=== PATIENT | female | born 1990 | race Caucasian/White ===

== ENCOUNTER 2022-08-28 08:00 | Outpatient (CLI) | payer MEDICAID ==
[2022-08-28 17:44] LABS: BASOPHILS # (AUTO) 0.1 10^3/uL (0.0-0.1); BASOPHILS % (AUTO) 1.1 %; EOSINOPHILS # (AUTO) 0.2 10^3/uL (0.0-0.7); EOSINOPHILS % (AUTO) 3.2 %; HCT - HEMATOCRIT 33.9 % (37.0-47.0); HGB - HEMOGLOBIN 10.7 g/dL (12.0-16.0); LYMPHOCYTES # (AUTO) 2.8 10^3/uL (1.5-3.5); MEAN CORPUSCULAR HEMOGLOBIN 25.7 pg (27.0-31.0); MEAN CORPUSCULAR HGB CONC 31.6 g/dL (32.0-36.0); MEAN CORPUSCULAR VOLUME 81.5 fL (81.0-99.0); MEAN PLATELET VOLUME 10.6 fL (7.9-10.8); MONOCYTES # (AUTO) 0.5 10^3/uL (0.0-1.0); MONOCYTES % (AUTO) 6.3 %; NEUTROPHILS # (AUTO) 3.8 10^3/uL (1.5-6.6); NEUTROPHILS % (AUTO) 51.3 %; PLT - PLATELET COUNT 392 10^3/uL (130-450); RED BLOOD COUNT 4.16 10^6/uL (4.20-5.40); RED CELL DISTRIBUTION WIDTH 16.2 % (12.0-15.0); WHITE BLOOD COUNT 7.5 x10^3/uL (4.8-10.8)
[2022-08-28 18:22] LABS: CALCIUM 9.9 mg/dL (8.5-10.3); CREATININE 0.6 mg/dL (0.4-1.0); POTASSIUM 4.1 mmol/L (3.5-5.0)
== END 2022-08-28 23:59 | disposition home or self-care (01) ==
LOC: LAB.N 08:00
PROVIDERS: ATTEND Physician Assistant
DX: N93.9 Abnormal uterine and vaginal bleeding, unspecified (principal)
CPT/HCPCS: 36415; 80048; 84443; 85025

== ENCOUNTER 2022-10-23 06:56 | Emergency (ER) | payer MEDICAID ==
[2022-10-23 07:11] VITALS: BP 116/76
[2022-10-23] MEDS ORDERED: SODIUM CHLORIDE 0.9% 1,000 ML IV STA (07:21)
[2022-10-23] MEDS ORDERED: KETOROLAC 30 MG/ML VIAL IVP STA (07:21)
--- NOTE | 2022-10-23 07:24 | ED Physician Documentation ---
PD HPI ABD PAIN - Stated complaint Stated Complaint: LT SIDE PX - Chief complaint Chief Complaint: Abd Pain - History obtained from History obtained from: Patient - History of Present Illness Timing - onset: Enter time (0500) Timing - duration: Hours Timing - details: Abrupt onset, Still present Pain level max: 10 Pain level now: 6 Quality: Sharp, Pain Location: LLQ Radiation: Left flank Improved by: Other (nothing) Worsened by: Position Associated symptoms: Nausea, Vaginal bleeding. No: Vomiting, Vaginal dc Similar symptoms before: Has not had sx before Recently seen: Not recently seen - Additional information Additional information: 32-year-old female with no particular past medical history awoke this morning at 5 AM with acute left flank pain radiating into her groin and causing her some urinary urgency. She did have some vaginal spotting this morning. Pain was nonmodifiable and the patient had her drive her to the emergency department Review of Systems Constitutional: denies: Fever Ears: denies: Ear pain Nose: denies: Congestion Throat: denies: Sore throat Cardiac: denies: Chest pain / pressure Respiratory: denies: Cough GI: reports: Abdominal Pain, Nausea : reports: Hematuria. denies: Dysuria, Frequency Skin: denies: Rash Musculoskeletal: reports: Back pain. denies: Neck pain, Extremity pain Neurologic: denies: Generalized weakness, Focal weakness, Numbness PD PAST MEDICAL HISTORY - Present Medications Home Medications: Ambulatory Orders Medication Instructions Recorded Confirmed HYDROcod/ACETAM 5/325 [[place] 5/325] 1 - 2 tablet PO Q6H PRN #14 tablet 10/23/22 - Allergies Allergies/Adverse Reactions: Allergies Allergy/AdvReac Type Severity Reaction Status Date / Time No Known Drug Allergies Allergy Verified 10/23/22 07:06 PD ED PE NORMAL - Vitals Vital signs reviewed: Yes (normal ) - General General: Alert and oriented X 3, Well developed/nourished, Other (appears to be in pain ) - HEENT HEENT: Atraumatic, PERRL, EOMI - Neck Neck: Supple, no meningeal sign, No bony TTP - Cardiac Cardiac: RRR, No murmur - Respiratory Respiratory: No respiratory distress, Clear bilaterally - Abdomen Abdomen: Normal bowel sounds, Soft, Non tender, Non distended, No organomegaly - Back Back: No CVA TTP, No spinal TTP - Derm Derm: Normal color, Warm and dry, No rash - Extremities Extremities: No deformity, No edema - Neuro Neuro: Alert and oriented X 3, director 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 2-12 intact, No motor deficit, No sensory deficit, Normal speech Eye Opening: Spontaneous Motor: Obeys Commands Verbal: Oriented GCS Score: 15 - Psych Psych: Normal mood, Normal affect Results - Vitals Vitals: Vital Signs - 24 hr 10/23/22 07:04 Temperature 36.8 C Heart Rate 79 Respiratory 20 Rate Blood Pressure 116/76 O2 Saturation 100 Oxygen O2 Source Room air - Labs Labs: Laboratory Tests 10/23/22 10/23/22 10/23/22 07:37 07:40 07:40 WBC 6.4 RBC 4.13 L Hgb 9.9 L Hct 32.4 L MCV 78.5 L MCH 24.0 L MCHC 30.6 L RDW 14.6 Plt Count 368 MPV 9.8 Neut # (Auto) 4.4 Lymph # (Auto) 1.4 L [place] # (Auto) 0.4 Eos # (Auto) 0.2 Baso # (Auto) 0.1 Absolute Nucleated RBC 0.00 Nucleated RBC % 0.0 Sodium 136 Potassium 4.1 Chloride 101 Carbon Dioxide 25 Anion Gap 10.0 BUN 17 Creatinine 0.6 Estimated GFR (MDRD) 115 Glucose 89 Calcium 9.2 Total Bilirubin 0.8 AST 21 ALT 15 Alkaline Phosphatase 75 Total Protein 7.4 Albumin 4.2 Globulin 3.2 Albumin/Globulin Ratio 1.3 Lipase 40 Urine Color RED/BLOODY Urine Clarity CLOUDY Urine pH 6.5 Ur Specific [place] 1.020 Urine Protein 100 H Urine Glucose (UA) NEGATIVE Urine Ketones NEGATIVE Urine Occult Blood LARGE H Urine Nitrite NEGATIVE Urine Bilirubin NEGATIVE Urine Urobilinogen 0.2 (NORMAL) Ur Leukocyte Esterase NEGATIVE Urine RBC TNTC H Urine WBC 0-3 Ur Squamous Epith Cells FEW Squamous Urine Bacteria Moderate H Ur Microscopic Review INDICATED Urine Culture Comments NOT INDICATED Urine HCG, Qual NEGATIVE - Rads (name of study) CT ab/pel without Radiology: Prelim report reviewed (See below), EMP read indepedently Procedures - Bedside sono Bedside sono by EMP: With use of POCUS the left kidney is imaged there is a large cyst there is obvious hydronephrosis as well the kidney is sonographically nontender PD Medical Decision Making - ED course Complexity details: reviewed old records, reviewed results, re-evaluated patient, considered differential, d/w patient Reviewed Lab Results: Impression: 1. 3 mm distal left ureteral stone just proximal to the left UVJ with mild to moderate left-sided hydronephrosis and hydroureter. Nonobstructing stones also seen in left kidney. No right-sided stones or hydronephrosis. Normal-appearing urinary bladder. No bowel obstruction or abnormal bowel wall thickening. Prior gastric surgery. No abscess collection. No free fluid. ED course: 32-year-old female presents to the emergency department with nonmodifiable left flank pain. On pocus she is found to have hydronephrosis with a nontender k idney and a CT scan confirms ureterolithiasis on the left side with hydro-. The patient has improvement in her pain with use of Toradol and saline. She has a small stone likely to pass without trouble. I found the patient's history physical examination and findings on POCUS as well as CT all to confirm diagnosis of ureterolithiasis. Departure - Departure Disposition: 01 Home, Self Care Clinical Impression: Ureterolithiasis Condition: Stable Instructions: ED Stone Renal W Colic Follow-Up: Lacie Mortensen PA [Provider Admit Priv/Credential] - Prescriptions: HYDROcod/ACETAM 5/325 [[place] 5/325] 1 - 2 tablet PO Q6H PRN #14 tablet PRN Reason: Pain Comments: Stacie, today it looks like the severe pain you are having is related to a stone that is getting ready to pass into the bladder. Once it passes into the bladder your pain should resolve. The blood in the urine should resolve over the next day to 2 as well. I have E scribed some [place] to [facility] [place]. Pain control and hydration are the mainstays of treatment for a stone that is passing. The stone is 3 mm and we are expecting this should pass within the next 2 days. There are 2 additional stones in the left kidney. Stay well- hydrated and keep the pain medication in your cabinet as the stones will be painful when they pass. The [place] has been E scribed to the [facility] in [place]. It is a controlled substance and you should not drive or operate machinery after you have taken it. It can be constipating and my recommendation is to take some milk of magnesia if you do not have a bowel movement within 2 days. This medication can be habit- forming and we are only providing a limited amount. Protect this medication as it is a target for theft. Discharge Date/Time: 10/23/22 08:58
[2022-10-23 07:46] LABS: BASOPHILS # (AUTO) 0.1 10^3/uL (0.0-0.1); BASOPHILS % (AUTO) 0.8 %; EOSINOPHILS # (AUTO) 0.2 10^3/uL (0.0-0.7); EOSINOPHILS % (AUTO) 2.5 %; HCT - HEMATOCRIT 32.4 % (37.0-47.0); HGB - HEMOGLOBIN 9.9 g/dL (12.0-16.0); LYMPHOCYTES # (AUTO) 1.4 10^3/uL (1.5-3.5); MEAN CORPUSCULAR HGB CONC 30.6 g/dL (32.0-36.0); MEAN CORPUSCULAR VOLUME 78.5 fL (81.0-99.0); MEAN PLATELET VOLUME 9.8 fL (7.9-10.8); MONOCYTES # (AUTO) 0.4 10^3/uL (0.0-1.0); MONOCYTES % (AUTO) 5.5 %; NEUTROPHILS # (AUTO) 4.4 10^3/uL (1.5-6.6); NEUTROPHILS % (AUTO) 68.9 %; PLT - PLATELET COUNT 368 10^3/uL (130-450); RED BLOOD COUNT 4.13 10^6/uL (4.20-5.40); RED CELL DISTRIBUTION WIDTH 14.6 % (12.0-15.0); WHITE BLOOD COUNT 6.4 x10^3/uL (4.8-10.8)
[2022-10-23 07:54] LABS: BILIRUBIN,URINE NEGATIVE (NEGATIVE); GLUCOSE, URINE (UA) NEGATIVE (NEGATIVE); KETONES,URINE (UA) NEGATIVE (NEGATIVE); LEUKOCYTE ESTERASE, URINE NEGATIVE (NEGATIVE); NITRITE,URINE NEGATIVE (NEGATIVE); OCCULT BLOOD,URINE LARGE (NEGATIVE); PH,URINE 6.5 PH (5.0-7.5); PROTEIN,URINE 100 mg/dL (NEGATIVE); UROBILINOGEN,URINE 0.2 (NORMAL) E.U./dL (NORMAL)
[2022-10-23 07:56] LABS: CLARITY,URINE CLOUDY (CLEAR); HCG UR QUAL NEGATIVE
[2022-10-23 07:59] LABS: RBC,URINE TNTC /HPF (0-5); SQUAMOUS EPITHELIAL CELL,UR FEW Squamous (<= Few); WBC,URINE 0-3 /HPF (0-5)
[2022-10-23 07:59] LABS: ALBUMIN 4.2 g/dL (3.2-5.5); ALBUMIN/GLOBULIN RATIO 1.3 (1.0-2.2); BILIRUBIN,TOTAL 0.8 mg/dL (0.2-1.0); CALCIUM 9.2 mg/dL (8.5-10.3); CREATININE 0.6 mg/dL (0.4-1.0); POTASSIUM 4.1 mmol/L (3.5-5.0); TOTAL PROTEIN 7.4 g/dL (6.7-8.2)
[2022-10-23 08:01] LABS: BACTERIA,URINE Moderate /HPF (None Seen)
--- NOTE | 2022-10-23 08:14 | CT Report ---
PROCEDURE: ABDOMEN/PELVIS WO INDICATIONS: L flank pain hydro on POCUS TECHNIQUE: Noncontrast 5 mm thick sections acquired from the diaphragms to the symphysis. 5 mm coronal and sagi ttal reformats were then performed. For radiation dose reduction, the following was used: automated exposure control, adjustment of mA and/or kV according to patient size. COMPARISON: None. FINDINGS: Image quality: Excellent. ABDOMEN: Lung bases: Lung bases are clear. Heart size is normal. Solid organs: Liver and spleen are normal in size. Calcified granuloma is noted in anterior aspect of spleen. Gallbladder is surgically absent. Pancreas is normal in contours. No adrenal nodules. Kidneys are normal in size. Mild left-sided hydronephrosis and hydroureter is seen. There is a 3 mm s tone seen in distal left ureter just proximal to left UVJ series 3 image 74. Additional nonobstructin g stones are noted in lower pole left kidney measures up to 3 mm in size. No right-sided stones or hy dronephrosis. No right-sided hydroureter. Peritoneum and bowel: Prior gastric surgery with postsurgical changes. No evidence of bowel obstruct ion. No gross abnormal bowel wall thickening or mesenteric fat stranding. No abscess collection. No f ree fluid of free air. Nodes and vessels: No retroperitoneal or mesenteric adenopathy by size criteria. Aorta and inferior vena cava are normal in caliber. Miscellaneous: No ventral hernias. PELVIS: Genitourinary: Bladder wall thickness is normal. Miscellaneous: No inguinal hernias or adenopathy. Uterus and bilateral adnexa show no gross abnorma lities. Bones: No suspicious bony lesions. No vertebral body compression fractures. IMPRESSION: 1. 3 mm distal left ureteral stone just proximal to left UVJ with mild to moderate left-sided hydrone phrosis or hydroureter. Nonobstructing stones also seen in left kidney. 2. No right-sided stones or hydronephrosis. Normal-appearing urinary bladder. 3. No bowel obstruction or abnormal bowel wall thickening. Prior gastric surgery. No abscess collecti on. No free fluid of free air. Reviewed by: Mike Winkler MD on 10/23/2022 8:12 AM PST Approved by: Mike Winkler MD on 10/23/2022 8:12 AM PST Station ID: [id number]
== END 2022-10-23 08:58 | disposition home or self-care (01) ==
LOC: ED 06:56
DX: N13.2 Hydronephrosis with renal and ureteral calculous obstruction (principal)
CPT/HCPCS: 36415; 80053; 81001; 81003; 81025; 83690; 85025; 87086; 96374; 99283

== ENCOUNTER 2023-12-27 12:27 | Emergency (ER) | payer MEDICAID, OTHER ==
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
[2023-12-27] MEDS: LIDOCAINE PATCH 5% TOP STA (13:10)
[2023-12-27] MEDS: ACETAMINOPHEN 500 MG TABLET PO STA (13:10)
[2023-12-27 13:29] LABS: BILIRUBIN,URINE NEGATIVE (NEGATIVE); GLUCOSE, URINE (UA) NEGATIVE (NEGATIVE); KETONES,URINE (UA) NEGATIVE (NEGATIVE); LEUKOCYTE ESTERASE, URINE MODERATE (NEGATIVE); NITRITE,URINE NEGATIVE (NEGATIVE); OCCULT BLOOD,URINE MODERATE (NEGATIVE); PROTEIN,URINE TRACE mg/dL (NEGATIVE); UROBILINOGEN,URINE 0.2 (NORMAL) E.U./dL (NORMAL)
[2023-12-27 13:30] LABS: CLARITY,URINE CLEAR (CLEAR)
[2023-12-27 13:32] LABS: HCG UR QUAL NEGATIVE
[2023-12-27 13:47] LABS: BACTERIA,URINE Few /HPF (None Seen); SQUAMOUS EPITHELIAL CELL,UR MOD Squamous (<= Few)
[2023-12-27 14:17] VITALS: BP 109/65; O2SAT 98
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
== END 2023-12-27 14:17 | disposition home or self-care (01) ==
LOC: ED 12:27
DX: S20.211A Contusion of right front wall of thorax, initial encounter (principal); Y04.2XXA Assault by strike against or bumped into by another person, initial encounter; R07.89 Other chest pain
CPT/HCPCS: 71101; 81001; 81025; 99283; 99284; A9270; 81003; 87086

== ENCOUNTER 2025-10-06 05:23 | Inpatient (IN) ==
--- OUTSIDE RECORDS SUMMARY | 2025-10-06 05:28 | EXTERNAL MEDICAL SUMMARY RPT | Continuity of Care Document ---
Author Organization [facility] Address [address] [place] [id number] Phone Allergies and Intolerances date description facility reaction severity 2025-03-09 10:00 [id number]^No Known Drug Allergies^^No Known Drug Allergies^^allergy.id [facility] (no reaction) (no severity) 2025-05-21 10:00 [id number]^No Known Drug Allergies^^No Known Drug Allergies^^allergy.id [facility] (no reaction) (no severity) 2025-06-18 10:00 [id number]^No Known Drug Allergies^^No Known Drug Allergies^^allergy.id [facility] (no reaction) (no severity) 2025-07-16 10:00 [id number]^No Known Drug Allergies^^No Known Drug Allergies^^allergy.id [facility] (no reaction) (no severity) 2025-08-26 10:00 [id number]^No Known Drug Allergies^^No Known Drug Allergies^^allergy.id [facility] (no reaction) (no severity) 2025-09-10 10:00 [id number]^No Known Drug Allergies^^No Known Drug Allergies^^allergy.id [facility] (no reaction) (no severity) 2025-09-21 10:00 [id number]^No Known Drug Allergies^^No Known Drug Allergies^^allergy.id [facility] (no reaction) (no severity) 2025-09-30 10:00 [id number]^No Known Drug Allergies^^No Known Drug Allergies^^allergy.id [facility] (no reaction) (no severity) Problems date description facility 2025-06-19 11:31 Hypothyroidism, unspecified [facility] 2025-06-19 11:31 Obesity, unspecified [facility] 2025-06-19 11:31 Supervision of elder ly multigravida, unspecified trimester [facility] 2025-06-19 11:33 Hypothyroidism, unspecified [facility] 2025-06-19 11:33 Obesity, unspecified [facility] 2025-06-19 11:33 Supervision of elder ly multigravida, unspecified trimester [facility] 2025-07-10 12:14 Hypothyroidism, unspecified [facility] 2025-07-10 12:14 Supervision of elder ly multigravida, unspecified trimester [facility] 2025-07-10 12:14 Encounter for superv ision of normal , unspecified, unspecified trimester [facility] 2025-07-11 00:03 Hypothyroidism, unspecified [facility] 2025-07-11 00:03 Supervision of elder ly multigravida, unspecified trimester [facility] 2025-07-11 00:03 Encounter for superv ision of normal , unspecified, unspecified trimester [facility] 2025-07-13 12:44 Supervision of elder ly multigravida, unspecified trimester [facility] 2025-07-16 09:34 Supervision of elder ly multigravida, unspecified trimester [facility] 2025-07-16 14:24 Hypothyroidism, unspecified [facility] 2025-07-16 14:24 Obesity, unspecified [facility] 2025-07-16 14:24 Supervision of elder ly multigravida, unspecified trimester [facility] 2025-07-16 15:47 Hypothyroidism, unspecified [facility] 2025-07-16 15:47 Abnormal glucose complicating p regnancy [facility] 2025-07-20 09:36 Hypothyroidism, unspecified [facility] 2025-07-20 09:36 Anemia complicating , second trimester [facility] 2025-07-20 09:36 Abnormal glucose complicating p regnancy [facility] 2025-07-20 09:39 Hypothyroidism, unspecified [facility] 2025-07-20 09:39 Other pruritus [facility] 2025-07-20 09:39 Supervision of elderly multigra dayton, second trimester [facility] 2025-07-20 09:39 Maternal care for un specified type scar from previous delivery [facility] 2025-07-20 09:39 Anemia complicating , second trimester [facility] 2025-07-20 09:39 Endocrine, nutrition al and metabolic diseases complicating , second trimester [facility] 2025-07-20 09:39 Diseases of the skin and subcutaneous tissue complicating , second trimester [facility] 2025-07-20 09:39 Abnormal glucose complicating p regnancy [facility] 2025-07-20 09:39 Other specified dise ases and conditions complicating [facility] 2025-07-20 09:39 Heartburn [facility] 2025-07-20 09:39 27 weeks gestation of [facility] 2025-07-20 17:14 Hypothyroidism, [facility] 2025-07-20 17:14 Obesity, unspecified [facility] 2025-07-20 17:14 Supervision of elder ly multigravida, unspecified trimester [facility] 2025-07-21 00:01 Hypothyroidism, unspecified [facility] 2025-07-21 00:01 Obesity, unspecified Wilmeridgustavoy Andrzej [facility] 2025-07-21 00:01 Supervision of elder ly multigravida, unspecified trimester [facility] 2025-07-22 07:32 Hypothyroidism, unspecified [facility] 2025-07-22 07:32 Obesity, unspecified [facility] 2025-07-22 07:32 Supervision of elderly multigra dayton, third trimester [facility] 2025-07-22 09:00 Hypothyroidism, unspecified [facility] 2025-07-22 09:00 Other pruritus [facility] 2025-07-22 09:00 Supervision of elderly multigra dayton, second trimester [facility] 2025-07-22 09:00 Maternal care for un specified type scar from previous delivery [facility] 2025-07-22 09:00 Anemia complicating , second trimester [facility] 2025-07-22 09:00 Endocrine, nutrition al and metabolic diseases complicating , second [facility]-22 09:00 Diseases of the skin and subcutaneous tissue complicating , second trimester [facility] 2025-07-22 09:00 Abnormal glucose complicating p regnancy [facility] 2025-07-22 09:00 Other specified dise ases and conditions complicating [facility] 2025-07-22 09:00 Heartburn [facility] 2025-07-22 09:00 27 weeks gestation of [facility] 2025-07-27 10:33 Hypothyroidism, unspecified [facility] 2025-07-27 10:33 Obesity, unspecified [facility] 2025-07-27 10:33 Supervision of elderly monique burris, third trimester [facility] 2025-07-28 15:58 Hypothyroidism, unspecified [facility] 2025-07-28 15:58 Obesity, unspecified [facility] 2025-07-28 15:58 Pain in left finger(s) [facility] 2025-07-28 15:58 Supervision of elderly monique burris, third trimester [facility] 2025-07-28 15:58 Other specified dise ases and conditions complicating [facility] 2025-07-28 15:58 Localized edema [facility] 2025-07-31 14:57 Other specified abnormal findin gs of blood chemistry [facility] 2025-07-31 14:57 Encounter for immunization [facility] [employer] [facility] 2025-08-03 14:23 Abnormal glucose complicating p regnancy [facility] 2025-08-03 14:23 Other specified abnormal findin gs of blood chemistry [facility] 2025-08-03 14:23 Encounter for immunization [employer] [facility] 2025-08-06 12:12 Abnormal glucose complicating p regnancy [facility] 2025-08-06 12:12 Other specified abnormal findin gs of blood chemistry [facility] 2025-08-06 12:12 Encounter for immunization [employer] [facility] 2025-08-19 07:03 Obesity complicating , unspecified trimester [facility] 2025-08-20 11:34 Maternal care for lo w transverse scar from previous delivery [facility] 2025-08-21 09:37 Maternal care for lo w transverse scar from previous delivery [facility] 2025-08-21 09:38 Maternal care for lo w transverse scar from previous delivery [facility] 2025-08-26 16:12 Anemia complicating , unspecified trimester [facility] 2025-08-27 00:03 Encounter for immunization [facility] 2025-08-28 07:57 Maternal care for un specified type scar from previous delivery [facility] 2025-08-28 07:58 Disorder of thyroid, unspecifie d [facility] 2025-08-28 07:58 Morbid (severe) obesity due to excess calories [facility] 2025-08-28 07:58 Supervision of elderly multigra dayton, third trimester [facility] 2025-08-28 07:58 Maternal care for lo w transverse scar from previous delivery [facility] 2025-08-28 07:58 Maternal care for un specified type scar from previous delivery [facility] 2025-08-28 07:58 Polyhydramnios, thir d trimester, not applicable or unspecified [facility] 2025-08-28 07:58 Anemia complicating , third trimester [facility] 2025-08-28 07:58 Obesity complicating , third trimester [facility] 2025-08-28 07:58 Endocrine, nutrition al and metabolic diseases complicating , third trimester [facility] 2025-08-28 07:58 Encounter for immunization [facility] 2025-08-28 07:58 33 weeks gestation of [facility] 2025-08-28 07:59 Disorder of thyroid, unspecifie d [facility] 2025-08-28 07:59 Morbid (severe) obesity due to excess calories [facility] 2025-08-28 07:59 Supervision of elderly multigra dayton, third trimester [facility] 2025-08-28 07:59 Maternal care for lo w transverse scar from previous delivery [facility] 2025-08-28 07:59 Polyhydramnios, thir d trimester, not applicable or unspecified [facility] 2025-08-28 07:59 Anemia complicating , third trimester [facility] 2025-08-28 07:59 Obesity complicating , third trimester [facility] 2025-08-28 07:59 Endocrine, nutrition al and metabolic diseases complicating , third trimester [facility] [employer] [facility] 2025-08-28 07:59 Encounter for immunization [facility] [employer] 2025-08-28 07:59 33 weeks gestation of [facility] 2025-08-28 08:01 Hypothyroidism, unspecified i [facility] 2025-08-28 08:01 Disorder of thyroid, unspecifie d [facility] 2025-08-28 08:01 Morbid (severe) obesity due to excess calories [facility] 2025-08-28 08:01 Supervision of elderly monique burris, third trimester [facility] [facility] 2025-08-28 08:01 Maternal care for lo w transverse scar from previous delivery [facility] 2025-08-28 08:01 Polyhydramnios, thir d trimester, not applicable or unspecified [facility] 2025-08-28 08:01 Anemia complicating , third trimester [facility] 2025-08-28 08:01 Obesity complicating , third trimester [facility] 2025-08-28 08:01 Endocrine, nutrition al and metabolic diseases complicating , third trimester [facility] 2025-08-28 08:01 Encounter for immunization [facility] [employer] 2025-08-28 08:01 33 weeks gestation of [facility] 2025-08-31 08:28 Polyhydramnios, thir d trimester, not applicable or unspecified [facility] 2025-08-31 08:29 Supervision of elderly multigra dayton, third trimester [facility] 2025-08-31 08:29 Polyhydramnios, thir d trimester, not applicable or unspecified [facility] 2025-08-31 08:29 34 weeks gestation of [facility] 2025-09-01 09:34 Hypothyroidism, unspecified [facility] 2025-09-01 09:34 Supervision of elderly multigra dayton, third trimester [facility] 2025-09-01 09:34 Maternal care for lo w transverse scar from previous delivery [facility] 2025-09-01 09:34 Polyhydramnios, thir d trimester, not applicable or unspecified [facility] 2025-09-01 09:34 Anemia complicating , third trimester [facility] 2025-09-01 09:34 Obesity complicating , third trimester [facility] 2025-09-01 09:34 Endocrine, nutrition al and metabolic diseases complicating , third trimester [facility] 2025-09-01 09:34 Encounter for immunization [facility] 2025-09-01 09:34 33 weeks gestation of [facility] 2025-09-01 09:35 Disorder of thyroid, unspecifie d [facility] 2025-09-01 09:35 Morbid (severe) obesity due to excess calories [facility] 2025-09-01 09:35 Maternal care for lo w transverse scar from previous delivery [facility] 2025-09-01 09:35 Polyhydramnios, thir d trimester, not applicable or unspecified [facility] 2025-09-01 09:35 Anemia complicating , third trimester [facility] 2025-09-01 09:35 Obesity complicating , third trimester [facility] 2025-09-01 09:35 Endocrine, nutrition al and metabolic diseases complicating , third trimester [facility] 2025-09-01 09:35 Encounter for immunization [facility] 2025-09-01 09:35 33 weeks gestation of [facility] 2025-09-02 08:20 Anemia complicating , unspecified trimester [facility] 2025-09-02 13:24 Anemia complicating , unspecified trimester [facility] 2025-09-02 13:25 Anemia complicating , unspecified trimester [facility] 2025-09-02 15:44 Anemia complicating , unspecified trimester [facility] 2025-09-03 00:04 Anemia complicating , unspecified trimester [facility] 2025-09-07 08:39 Anemia complicating , unspecified trimester [employer] 2025-09-07 09:44 Supervision of elderly multigra dayton, third trimester [facility] 2025-09-07 09:44 Polyhydramnios, thir d trimester, not applicable or unspecified [facility] 2025-09-07 09:44 34 weeks gestation of [facility] 2025-09-07 10:37 Supervision of elderly multigra dayton, third trimester [employer] 2025-09-07 10:37 Polyhydramnios, thir d trimester, not applicable or unspecified [employer] 2025-09-07 10:37 35 weeks gestation of [employer] 2025-09-08 08:56 Supervision of elderly multigra dayton, third trimester [employer] 2025-09-08 08:56 Polyhydramnios, thir d trimester, not applicable or unspecified [employer] 2025-09-08 08:56 35 weeks gestation of [employer] 2025-09-10 15:14 Morbid (severe) obesity due to excess calories [employer] 2025-09-10 15:14 Supervision of elder ly multigravida, unspecified trimester [employer] 2025-09-10 15:14 Polyhydramnios, thir d trimester, not applicable or unspecified [employer] 2025-09-10 15:14 Obesity complicating , third trimester [employer] 2025-09-10 15:14 Encounter for screeni ng for Streptococcus B [employer] 2025-09-11 08:25 Encounter for screeni ng for Streptococcus B [employer] [facility] 2025-09-11 09:35 Encounter for screeni ng for Streptococcus B [facility] 2025-09-12 00:03 Encounter for screeni ng for Streptococcus B [employer] 2025-09-14 08:53 Encounter for screeni ng for Streptococcus B [employer] 2025-09-14 14:50 Encounter for screeni ng for Streptococcus B [employer] [facility] 2025-09-14 16:15 Obesity complicating , unspecified trimester [employer] 2025-09-14 17:13 Anemia complicating , third trimester [employer] 2025-09-15 00:02 Obesity complicating , unspecified trimester [employer] 2025-09-15 00:05 Hypothyroidism, unspecified [facility] 2025-09-15 00:05 Anemia complicating , third trimester [facility] 2025-09-15 00:05 Other specified abnormal findin gs of blood chemistry [employer] 2025-09-15 08:17 Obesity complicating , unspecified trimester [employer] 2025-09-18 07:46 Polyhydramnios, thir d trimester, not applicable or unspecified [employer] 2025-09-18 07:47 Supervision of elderly monique burris, third trimester [employer] 2025-09-18 07:47 Polyhydramnios, thir d trimester, not applicable or unspecified [employer] 2025-09-18 07:47 Anemia complicating , third trimester [employer] 2025-09-18 07:47 36 weeks gestation of [employer] 2025-09-18 13:47 Morbid (severe) obesity due to excess calories [employer] 2025-09-18 13:47 Supervision of elder ly multigravida, unspecified trimester [employer] 2025-09-18 13:47 Polyhydramnios, thir d trimester, not applicable or unspecified [employer] 2025-09-18 13:47 Obesity complicating , third trimester [employer] 2025-09-21 08:53 Supervision of elderly monique burris, third trimester [employer] 2025-09-21 08:53 Polyhydramnios, thir d trimester, not applicable or unspecified [employer] 2025-09-21 08:53 Anemia complicating , third trimester [employer] 2025-09-21 08:53 36 weeks gestation of [employer] 2025-09-21 18:07 Morbid (severe) obesity due to excess calories [employer] 2025-09-21 18:07 Polyhydramnios, thir d trimester, not applicable or unspecified [employer] 2025-09-21 18:07 Obesity complicating , third trimester [employer] 2025-09-25 14:50 Morbid (severe) obesity due to excess calories [employer] 2025-09-25 14:50 Polyhydramnios, thir d trimester, not applicable or unspecified [employer] 2025-09-25 14:50 Obesity complicating , third trimester [facility] 2025-09-30 08:19 Morbid (severe) obesity due to excess calories [employer] 2025-09-30 08:19 Polyhydramnios, thir d trimester, not applicable or unspecified [employer] 2025-09-30 08:19 Obesity complicating , third trimester [email or web address] 2025-09-30 08:20 Morbid (severe) obesity due to excess calories [employer] 2025-09-30 08:20 Polyhydramnios, thir d trimester, not applicable or unspecified [employer] 2025-09-30 08:20 Obesity complicating , third trimester [employer] 2025-09-30 08:35 Morbid (severe) obesity due to excess calories [employer] 2025-09-30 08:35 Polyhydramnios, thir d trimester, not applicable or unspecified [employer] 2025-09-30 08:35 Obesity complicating , third trimester [employer] 2025-09-30 08:36 Morbid (severe) obesity due to excess calories [employer] 2025-09-30 08:36 Polyhydramnios, thir d trimester, not applicable or unspecified [employer] 2025-09-30 08:36 Obesity complicating , third trimester [employer] 2025-09-30 11:14 Morbid (severe) obesity due to excess calories [employer] 2025-09-30 11:14 Polyhydramnios, thir d trimester, not applicable or unspecified [employer] 2025-09-30 11:14 Obesity complicating , third trimester [email or web address] 2025-09-30 11:55 Disorder of thyroid, unspecifie d [employer] 2025-09-30 11:55 Morbid (severe) obesity due to excess calories [employer] 2025-09-30 11:55 Maternal care for lo w transverse scar from previous delivery [employer] 2025-09-30 11:55 Polyhydramnios, thir d trimester, not applicable or unspecified [employer] 2025-09-30 11:55 Anemia complicating , third trimester [employer] 2025-09-30 11:55 Obesity complicating , third trimester [employer] 2025-09-30 11:55 Endocrine, nutrition al and metabolic diseases complicating , third trimester [employer] 2025-09-30 11:57 Hypothyroidism, unspecified [email or web address] 2025-09-30 11:57 Disorder of thyroid, unspecifie d [employer] 2025-09-30 11:57 Morbid (severe) obesity due to excess calories [employer] 2025-09-30 11:57 Supervision of elderly moinque burris, third trimester [employer] 2025-09-30 11:57 Maternal care for lo w transverse scar from previous delivery [employer] 2025-09-30 11:57 Polyhydramnios, thir d trimester, not applicable or unspecified [employer] 2025-09-30 11:57 Anemia complicating , third trimester [employer] 2025-09-30 11:57 Obesity complicating , third trimester [employer] 2025-09-30 11:57 Endocrine, nutrition al and metabolic diseases complicating , third trimester [employer] 2025-09-30 11:57 37 weeks gestation of [employer] 2025-10-05 08:03 Morbid (severe) obesity due to excess calories [employer] 2025-10-05 08:03 Supervision of elderly monique burris, third trimester [employer] 2025-10-05 08:03 Polyhydramnios, thir d trimester, not applicable or unspecified [employer] 2025-10-05 08:03 Obesity complicating , third trimester [employer] 2025-10-05 08:03 38 weeks gestation of [employer] 2025-10-05 11:53 Hypothyroidism, unspecified [email or web address] Pass 2025-10-05 11:53 Disorder of thyroid, unspecifie d [employer] 2025-10-05 11:53 Morbid (severe) obesity due to excess calories [facility] 2025-10-05 11:53 Supervision of elderly monique burris, third trimester [facility] 2025-10-05 11:53 Maternal care for lo w transverse scar from previous delivery [facility] 2025-10-05 11:53 Polyhydramnios, thir d trimester, not applicable or unspecified [facility] 2025-10-05 11:53 Anemia complicating , third trimester [facility] 2025-10-05 11:53 Obesity complicating , third trimester [facility] 2025-10-05 11:53 Endocrine, nutrition al and metabolic diseases complicating , third trimester [facility] 2025-10-05 11:53 37 weeks gestation of [employer] Results/Labs test date facility value unit notes Result panel 1 THYROID STIMULATING HORMONE 2025-07-10 10:55 [facility] 0.28 uiu/ml (missing) FREE T4 (FREE THYROXINE) 2025-07-10 10:55 [facility] 0.86 ng/dl Biotin at >10 ng/mL concentration may cause significant interference. HGB - HEMOGLOBIN 2025-07-10 10:55 [facility] 11.4 g/dl (missing) RED CELL DISTRIBUTION WIDTH 2025-07-10 10:55 [facility] 13.3 % (missing) GLUCOSE,1H PP 50GM DOSE 2025-07-10 10:55 [facility] 153 mg/dl 50g Challenge 1 hr post Glucose < 140 mg/dL Reference: [employer] As of April 2023 testing method has changed, this may include reference ranges. MEAN CORPUSCULAR HEMOGLOBIN 2025-07-10 10:55 [facility] 29.9 pg (missing) RED BLOOD COUNT 2025-07-10 10:55 [facility] 3.81 10 6/ul (missing) PLT - PLATELET COUNT 2025-07-10 10:55 [facility] 318 10 3/ul (missing) MEAN CORPUSCULAR HGB CONC 2025-07-10 10:55 [facility] 33.3 g/dl (missing) HCT - HEMATOCRIT 2025-07-10 10:55 [facility] 34.2 % (missing) FERRITIN 2025-07-10 10:55 [facility] 6.0 ng/ml (missing) MEAN CORPUSCULAR VOLUME 2025-07-10 10:55 [facility] 89.8 fl (missing) MEAN PLATELET VOLUME 2025-07-10 10:55 [facility] 9.7 fl (missing) WHITE BLOOD COUNT 2025-07-10 10:55 [facility] 9.8 x10 3/ul (missing) RPR 2025-07-10 10:55 [facility] Non Reactive (missing) Performed at: [facility] [address], [place], [place] [id number] Sample Maker Original: Thompson Rodriguez MD, Phone: [phone] Result panel 2 NUCLEATED RED BLOOD CELLS AUTO 2025-09-02 13:31 [facility] 0.0 /100wbc (missing) BASOPHILS # (AUTO) 2025-09-02 13:31 [facility] 0.0 10 3/ul (missing) NRBC ABSOLUTE COUNT (AUTO) 2025-09-02 13:31 [facility] 0.00 x10 3/ul (missing) EOSINOPHILS # (AUTO) 2025-09-02 13:31 [facility] 0.2 10 3/ul (missing) MONOCYTES # (AUTO) 2025-09-02 13:31 [facility] 0.7 10 3/ul (missing) LYMPHOCYTES # (AUTO) 2025-09-02 13:31 [facility] 1.8 10 3/ul (missing) WHITE BLOOD COUNT 2025-09-02 13:31 [facility] 10.6 x10 3/ul (missing) HGB - HEMOGLOBIN 2025-09-02 13:31 [facility] 11.2 g /dl (missing) RED CELL DISTRIBUTION WIDTH 2025-09-02 13:31 [facility] 14.1 % (missing) MEAN CORPUSCULAR HEMOGLOBIN 2025-09-02 13:31 [facility] 28.0 pg (missing) PLT - PLATELET COUNT 2025-09-02 13:31 [facility] 317 10 3/ul (missing) MEAN CORPUSCULAR HGB CONC 2025-09-02 13:31 [facility] 32.3 g/dl (missing) HCT - HEMATOCRIT 2025-09-02 13:31 [facility] 34.7 % (missing) IRON 2025-09-02 13:31 [facility] 39 ug/dl As of April 2023 testing method has changed, this may include reference ranges. RED BLOOD COUNT 2025-09-02 13:31 [facility] 4.00 10 6/ul (missing) TRANSFERRIN 2025-09-02 13:31 [facility] 433 mg/dl As of April 2023 testing method has changed, this may include reference ranges. % IRON SATURATION 2025-09-02 13:31 [facility] 6 % (missing) FERRITIN 2025-09-02 13:31 [facility] 6.6 ng/ml (missing) TOTAL IRON BINDING CAPACITY 2025-09-02 13:31 [facility] 606 ug/dl (missing) NEUTROPHILS # (AUTO) 2025-09-02 13:31 [facility] 7.8 10 3/ul (missing) MEAN CORPUSCULAR VOLUME 2025-09-02 13:31 [facility] 86.8 fl (missing) MEAN PLATELET VOLUME 2025-09-02 13:31 [facility] 9.6 fl (missing) Result panel 3 CUL,GBS SCREEN 2025-09-10 16:00 [facility] (missing) (missing) (missing) CUL,GBS SCREEN 2025-09-10 16:00 [facility] 44+ GROWTH (missing) (missing) CUL,GBS SCREEN 2025-09-10 16:00 [employer] CC.6COLONY COUNT (missing) (missing) MISC TEST [facility] AMBIENT 2025-09-10 16:00 [employer] COMMENT (missing) 960851 GBS SUSCEPTIBILITIES 304888 GBS SUSCEPTIBILITIES Test Ordered: [id number] Strep Gp B Susceptibility Organism Identification Comment SE Reference Range: . Beta hemolytic Streptococcus, group B Clindamycin Resistant [A ] SE Reference Range: . Testing for inducible clindamycin resistance was performed using erythromycin and clindamycin in the D-zone test. Per the Centers for Disease Control and Prevention (CDC), erythromycin is no longer an acceptable alternative for intrapartum group B Streptococcus (GBS) prophylaxis for penicillin-allergic women at high risk for anaphylaxis. Performed at: [facility] [address], [place], [place] [id number] Sample Maker Original: Thompson Rodriguez MD, Phone: [phone] CUL,GBS SCREEN 2025-09-10 16:00 [employer] CULTURE IN PROGRESS. RESULTS TO FOLLOW. (missing) (missing) CUL,GBS SCREEN 2025-09-10 16:00 [employer] IDMICID/MARISELA COM* (missing) (missing) CUL,GBS SCREEN 2025-09-10 16:00 [facility] MICREFSENT TO REF LAB FOR SUSCEPTIBILITIES-S EE SEPARATE REPORT (missing) (missing) GBSPCR,REFLE X IF PEN ALLERGIC 2025-09-10 16:00 [facility] POSITIVE (missing) (missing) CUL,GBS SCREEN 2025-09-10 16:00 [employer] SEE FOR ANTIBIOTIC SUSCEPTIBILITY (missing) (missing) O:STRGPB 2025-09-10 16:00 [facility] STRGPBBETA HEMOLYTIC STREP GROUP BBETA HEMOLYTIC STREP GROUP B (missing) (missing) Result panel 4 NUCLEATED RED BLOOD CELLS AUTO 2025-09-14 16:50 [facility] [employer] 0.0 /100wbc (missing) BASOPHILS # (AUTO) 2025-09-14 16:50 [facility] [employer] 0.0 10 3/ul (missing) NRBC ABSOLUTE COUNT (AUTO) 2025-09-14 16:50 [facility] 0.00 x10 3/ul (missing) EOSINOPHILS # (AUTO) 2025-09-14 16:50 [facility] [employer] 0.3 10 3/ul (missing) MONOCYTES # (AUTO) 2025-09-14 16:50 [facility] [employer] 0.7 10 3/ul (missing) LYMPHOCYTES # (AUTO) 2025-09-14 16:50 [facility] [employer] 1.8 10 3/ul (missing) MEAN PLATELET VOLUME 2025-09-14 16:50 [facility] 10.0 fl (missing) WHITE BLOOD COUNT 2025-09-14 16:50 [facility] 10.1 x10 3/ul (missing) HGB - HEMOGLOBIN 2025-09-14 16:50 [facility] 10.9 g /dl (missing) RED CELL DISTRIBUTION WIDTH 2025-09-14 16:50 [email or web address] 17.6 % (mi ssing) VITAMIN B12 2025-09-14 16:50 [facility] 175 pg/ml VITAMIN B12 RANGES: NORMAL 180 - 914 INDETERMINATE 145 -180 DEFICIENT < 145 THYROID STIMULATING HORMONE 2025-09-14 16:50 [email or web address] 2.33 uiu/ml (missing) FERRITIN 2025-09-14 16:50 [employer] 218.5 ng/ml (missing) MEAN CORPUSCULAR HEMOGLOBIN 2025-09-14 16:50 [employer] 28.5 pg (missing) PLT - PLATELET COUNT 2025-09-14 16:50 [employer] 281 10 3/ul (missing) RED BLOOD COUNT 2025-09-14 16:50 [employer] 3.82 10 6/ul (missing) MEAN CORPUSCULAR HGB CONC 2025-09-14 16:50 [employer] 32.2 g/dl (missing) HCT - HEMATOCRIT 2025-09-14 16:50 [email or web address] 33.8 % (missing) NEUTROPHILS # (AUTO) 2025-09-14 16:50 [employer] 7.2 10 3/ul (missing) MEAN CORPUSCULAR VOLUME 2025-09-14 16:50 [email or web address] 88.5 fl (missing) Social History date description facility
[2025-10-06] MEDS ORDERED: LACTATED RINGERS 1,000 ML IV SCH (06:00)
[2025-10-06] MEDS ORDERED: CITRIC ACID/SODIUM CITRATE 15 ML UDC PO ONE (06:01)
[2025-10-06 06:35] LABS: HCT - HEMATOCRIT 36.2 % (37.0-47.0); HGB - HEMOGLOBIN 11.9 g/dL (12.0-16.0); MEAN PLATELET VOLUME 9.7 fL (7.9-10.8); NRBC ABSOLUTE COUNT (AUTO) 0.00 x10^3/uL; NUCLEATED RED BLOOD CELLS AUTO 0.0 /100WBC; PLT - PLATELET COUNT 263 10^3/uL (130-450); RED CELL DISTRIBUTION WIDTH 18.0 % (12.0-15.0)
[2025-10-06] MEDS ORDERED: fentaNYL 100 MCG/2 ML VIAL ONE (07:33)
--- NOTE | 2025-10-06 07:33 | ANESTHESIA PROCEDURE NOTE ---
Pre-Anesthesia VS, & Labs Diagnosis Surgical Diagnosis:: Previous C section Procedure Procedure: Repeat C Section Vitals Vital Signs: Temp Pulse Resp BP Pulse Ox 37.2 C 93 16 118/70 98 10/06/25 05:33 10/06/25 05:33 10/06/25 05:33 10/06/25 05:33 10/06/25 05:31 NPO NPO: >8 hours Is Patient ?: Yes Lab Results Current Lab Results: Laboratory Tests 10/06/25 06:27: WBC 9.6, RBC 4.11 L, Hgb 11.9 L, Hct 36.2 L, MCV 88.1, MCH 29.0, MCHC 32.9, RDW 18.0 H, Plt Count 263, MPV 9.7, Neut # (Auto) 6.9 H, Lymph # (Auto) 1.6, [place] # (Auto) 0.8, Eos # (Auto) 0.2, Baso # (Auto) 0.0, Absolute Nucleated RBC 0.00, Nucleated RBC % 0.0 Lab results reviewed: Yes 10/06/25 06:27 Meds/Allgy Home Medications Ambulatory Orders Medication Instructions Recorded Confirmed pyridoxine (vitamin B6) PO 03/18/25 09/30/25 levothyroxine 150 mcg capsule 150 mcg PO QDAY hypothyr oidism #30 03/20/25 10/06/25 caps aspirin 81 mg tablet,delayed 81 mg PO QDAY preeclampsi a 04/20/25 10/06/25 release prevention #180 tabs Held on 10/06/25. Instructions: Per Provider cholecalciferol (vitamin D3) 125 125 mcg PO QDAY #360 caps 04/20/25 10/06/25 mcg (5,000 unit) capsule ferrous sulfate 325 mg (65 mg 325 mg PO Q OTHER DAY #9 0 tabs 04/20/25 10/06/25 iron) tablet (FeroSul) [id number] 400 mcg-om3 35 mg-dha 25 tab PO 05/21/2509/08 mg-epa 5 mg-fish oil chewable tablet mecobalamin (vitamin B12) PO 08/14/25 09/30/25 blood sugar diagnostic (Blood #50 ea 09/18/25 10/06/25 Glucose Test strips) Held on 10/06/25. Instructions: Per Provider blood-glucose meter (Blood Glucose #1 ea 09/18/2509/09 Monitoring kit) Held on 10/06/25. Instructions: Per Provider lancets (Lancets,Ultra Thin) #100 ea 09/18/25 10/06/25 Held on 10/06/25. Instructions: Per Provider Allergies Allergies Allergy/AdvReac Type Severity Reaction Status Date / Time No Known Drug Allergies Allergy Verified 09/30/25 08:36 PFSH Active Problems All Active Problems 33 weeks gestation of (Acute) Maternal care due to low transverse uterine scar from previous delivery (Acute) Polyhydramnios, third trimester, not applicable or unspecified (Acute) Obesity complicating , third trimester (Acute) Thyroid disease during in third trimester (Acute) Anemia complicating , third trimester (Acute) Anemia complicating , unspecified trimester (Acute) Obesity complicating (Acute) Low vitamin B12 level (Acute) Glucose intolerance of (Acute) Obesity (BMI 35.0-39.9 without comorbidity) (Acute) Supervision of elderly multigravida (Acute) Polycystic ovarian syndrome (Acute) Hypothyroid (Acute) Medical History Medical History depression Surgical History Surgical History History of delivery x 3, last at [facility] and hard time with spinal. H/O gastric sleeve Family History Family History Mother CVA (cerebral vascular accident) Father High blood pressure Social History Social History Smoking Status: Never smoker Do you dip or chew tobacco?: No Do you vape?: No Patient requests smoking cessation consult: No Initiate information on smoking cessation: No Living arrangement: At home Marital Status: Living Condition: With spouse/s.o. Support Person: No Do you feel safe in your home environment?: Yes History of physical, verbal, emotional, or financial abuse?: No ETOH Use: None Substance Use: denies use Are you sexually active?: No POLST Patient has POLST: No Anesthesia Exam (Expanded) Exam General: Alert and Oriented x3 Dental: WNL Mouth Openin Fingerbreadth Neck Mobility: Normal Mallampati classification: II Thyromental Distance: 4-6 cm Respiratory: Lungs clear and Normal breath sounds Cardiovascular: Regular rate Neurological: Normal speech Mental/Cognitive Status: Alert/Oriented X3 Cognitive Status: Within normal limits Exam Exam Vital Signs: Vital Signs x48h Temp Pulse Pulse Resp BP BP Pulse Ox 10/06/25 05:33 37.2 C 93 16 118/70 10/06/25 05:31 37.2 C 90 16 118/70 98 Constitutional normal general appearance HENMT dentition normal Respiratory breath sounds equal bilaterally and normal respiratory effort Cardiovascular normal heart rate noted and regular rhythm noted Back/Pelvis lumbar spine ROM normal Pt reports difficulty obtaining previous spinal. Denies spine abnormality or any surgeries Plan Plan Anesthesia Type: Spinal and Transverse Abdominis Plane (TAP) Block Consent for Procedure(s) Verified and Reviewed: Yes Code Status: Attempt Resuscitation ASA Classification ASA classification: 2-Mild systemic disease Is this case an emergency?: No
[2025-10-06] MEDS ORDERED: PHENYLEPHRINE 10 MG/ML VIAL ONE (07:35)
[2025-10-06] MEDS: CITRIC ACID/SODIUM CITRATE 15 ML UDC PO ONE (07:38)
--- NOTE | 2025-10-06 07:39 | HISTORY & PHYSICAL EXAMINATION ---
Admit History Smoking Status: Never smoker Other Maternal History Other Maternal History: HPI: Stacie is a 35 yo at 39w4d who is admitted for repeat delivery, bilateral salpingectomy. Reports feeling well this morning. Does have a headache, thinks from not drinking overnight. Occasional contractions. No LOF, VB. + FM. Certain that she wants to proceed with sterilization. monitoring form, copied from record: PE: Vitals signs reviewed Gen: NAD Chest: non labored respirations Abd: gravid, non tender. Ext: no LE edema SVE: deferred NST: Time: 3832-4733 Reactive, Cat 1, occasional contractions noted. Labs: CBC reviewed A/P: Stacie is a 35 yo at 39w4d who is admitted for repeat delivery, bilateral salpingectomy. Will proceed with procedure as planned. Consents previously reviewed and signed in clinic. Andrew Castano MD HPI Current : Current EDU 10/09/25 Gestation 39 Weeks and 4 Days Vital Signs Temperature 99.0 F 10/06/25 05:33 Pulse Rate 93 10/06/25 05:33 Respiratory Rate 16 10/06/25 05:33 Blood Pressure 118/70 10/06/25 05:33 O2 Saturation 98 10/06/25 05:31 NST Procedure NST Procedure: NST Procedure Start Date 10/06/25 Start Time 05:37 Stop Time 05:57 Vibroacoustic Stimulation Used No Patient States Movement Yes Meds/Allgy Home Medications Ambulatory Orders Medication Instructions Recorded Confirmed pyridoxine (vitamin B6) PO 03/18/25 09/30/25 levothyroxine 150 mcg capsule 150 mcg PO QDAY hypothyr oidism #30 03/20/25 10/06/25 caps aspirin 81 mg tablet,delayed 81 mg PO QDAY preeclampsi a 04/20/25 10/06/25 release prevention #180 tabs Held on 10/06/25. Instructions: Per Provider cholecalciferol (vitamin D3) 125 125 mcg PO QDAY #360 caps 04/20/25 10/06/25 mcg (5,000 unit) capsule ferrous sulfate 325 mg (65 mg 325 mg PO Q OTHER DAY #9 0 tabs 04/20/25 10/06/25 iron) tablet (FeroSul) [id number] 400 mcg-om3 35 mg-dha 25 tab PO 05/21/2509/08 mg-epa 5 mg-fish oil chewable tablet mecobalamin (vitamin B12) PO 08/14/25 09/30/25 blood sugar diagnostic (Blood #50 ea 09/18/25 10/06/25 Glucose Test strips) Held on 10/06/25. Instructions: Per Provider blood-glucose meter (Blood Glucose #1 ea 09/18/2509/09 Monitoring kit) Held on 10/06/25. Instructions: Per Provider lancets (Lancets,Ultra Thin) #100 ea 09/18/25 10/06/25 Held on 10/06/25. Instructions: Per Provider Allergies Allergies Allergy/AdvReac Type Severity Reaction Status Date / Time No Known Drug Allergies Allergy Verified 09/30/25 08:36 PFSH Active Problems All Active Problems 33 weeks gestation of (Acute) Anemia complicating , third trimester (Acute) Anemia complicating , unspecified trimester (Acute) Glucose intolerance of (Acute) Hypothyroid (Acute) Low vitamin B12 level (Acute) Maternal care due to low transverse uterine scar from previous delivery (Acute) Obesity (BMI 35.0-39.9 without comorbidity) (Acute) Obesity complicating (Acute) Obesity complicating , third trimester (Acute) Polycystic ovarian syndrome (Acute) Polyhydramnios, third trimester, not applicable or unspecified (Acute) Supervision of elderly multigravida (Acute) Thyroid disease during in third trimester (Acute) Medical History Medical History depression Surgical History Surgical History History of delivery x 3, last at [facility] and hard time with spinal. H/O gastric sleeve Family History Family History Mother CVA (cerebral vascular accident) Father High blood pressure Social History Social History Smoking Status: Never smoker Do you dip or chew tobacco?: No Do you vape?: No Patient requests smoking cessation consult: No Initiate information on smoking cessation: No Living arrangement: At home Marital Status: Living Condition: With spouse/s.o. Support Person: No Do you feel safe in your home environment?: Yes History of physical, verbal, emotional, or financial abuse?: No ETOH Use: None Substance Use: denies use Are you sexually active?: No POLST Patient has POLST: No Physical Abdominal Exam Vital Signs: Temp Pulse Resp BP Pulse Ox 99.0 F 93 16 118/70 98 10/06/25 05:33 10/06/25 05:33 10/06/25 05:33 10/06/25 05:33 10/06/25 05:31 Plan for Labor Plan For Labor I expect patient to be DC'd or transferred within 96 hours.: Yes Conclusion/Plan Lab Results 10/06/25 06:27
[2025-10-06] MEDS ORDERED: DEXAMETHASONE 10 MG/ML VIAL ONE (07:41)
[2025-10-06] MEDS ORDERED: OXYTOCIN/SODIUM CHLORIDE 500 ML IV ONE (08:32)
[2025-10-06] MEDS ORDERED: ACETAMINOPHEN 1,000 MG/100 ML 1,000 MG/100 ML BAG IV ONE (09:03)
[2025-10-06] MEDS ORDERED: KETOROLAC 30 MG/ML VIAL ONE (09:03)
[2025-10-06] MEDS ORDERED: SODIUM CHLORIDE 0.9% 10 ML VIAL ONE (10:02)
[2025-10-06] MEDS ORDERED: ROPIVACAINE 0.2% PF 10 ML VIAL ONE (10:02)
[2025-10-06] MEDS: LACTATED RINGERS 1,000 ML IV SCH (10:22)
[2025-10-06] MEDS ORDERED: ONDANSETRON 4 MG/2 ML VIAL IVP PRN ×2 (10:26→10:39)
[2025-10-06] MEDS ORDERED: CALCIUM CARBONATE CHEW 500 MG TABLET PO PRN (10:26)
[2025-10-06] MEDS ORDERED: LABETALOL 20 MG/4 ML SYRINGE IVP PRN ×3 (10:26)
[2025-10-06] MEDS ORDERED: OXYTOCIN/SODIUM CHLORIDE 500 ML IV PRN (10:26)
[2025-10-06] MEDS ORDERED: NALOXONE 0.4 MG/ML VIAL IVP PRN ×2 (10:26→10:39)
[2025-10-06] MEDS ORDERED: hydrALAZINE INJ 20 MG/ML VIAL IVP PRN ×2 (10:26)
[2025-10-06] MEDS ORDERED: METOCLOPRAMIDE 10 MG TABLET PO PRN (10:26)
[2025-10-06] MEDS ORDERED: ONDANSETRON ODT 4 MG TABLET TL PRN (10:26)
[2025-10-06] MEDS ORDERED: HYDROCORTISONE 1% CREAM 28 GM TUBE TOP PRN (10:26)
--- NOTE | 2025-10-06 10:33 | OPERATIVE REPORT ---
Operative Report General Admit Date: 10/06/25 Procedure Data: Operation Date: 10/06/25 07:30 Proposed Procedures p Section(Not Applicable) - Andrew Castano MD s bilateral salpingectomy(Not Applicable) - Andrew Castano MD Actual Procedures p Section(Not Applicable) - Andrew Castano MD s Open Salpingectomy(Not Applicable) - Andrew Castano MD Anesthesia Type Spinal Case Staff Anesthesia Provider: Tony Moore Assisting Provider: Nola Huerta Case Times Procedure Start: 10/06/25 08:23 Procedure End: 10/06/25 10:03 Time out: 10/06/25 08:22 Other Other Information/Narrative: DATE OF PROCEDURE: 10/06/25 Surgeon: Andrew Castano MD Vehicle Controls Engineer: Nola Huerta MD Pre-Op Diagnosis: History of delivery x 3, desires permanent sterilization Post-Op Diagnosis: Same Procedures: Repeat low transverse delivery, bilateral salpingectomy Findings: Omental adhesions to anterior abdominal wall. Dense band of scar tissue on the mid and left side of lower uterine segment. Fallopian tubes adhered to bilateral ovaries which overall appeared normal. Clear amniotic fluid. Apgars 8/9. Specimens: bilateral fallopian tubes Anesthesia Technique: spinal, TAP block Estimated Blood Loss: 760cc Blood Replacement: none Fluid Replacement: 1 L LR Drains: graff catheter, drained 50cc yellow urine. Complications: none Condition: stable Procedure in Detail: The patient was taken to the operating room where spinal anesthesia was placed. Graff catheter was placed. She was prepared and draped in the normal sterile fashion in the dorsal supine position with a leftward tilt. 2g Ancef was given for prophylaxis. A skin incision was made at her prior scar and carried down through the subcutaneous tissue in the midline with the knife. The remainder of the subcutaneous tissue was then with cautery and then bluntly. The fascia was incised in the midline and the incision was extended sharply with Mayos. The superior aspect of the fascial incision was grasped with two Farzaneh clamps, elevated, and the underlying rectus muscles dissected off both bluntly and with the aid of the Mayos. The peritoneum was entered with dissection of the fascia. The peritoneal incision was extended bluntly and with cautery. An reynaldo retractor was placed. The lower uterine segment was pretty thin, and there was a dense band of scar tissue on the mid/left side. The hysterotomy was made just above the thin tissue in the lower uterine segment and to the right of the band of scar tissue. The uterine incision was extended bluntly. The infants head was elevated and brought to the hysterotomy and fundal pressure applied. It was difficult to delivery the head and a vacuum was called for, but the head ultimately did delivery spontaneously with fundal pressure, followed by the remainder of the body. The cord was clamped and cut after 60 sec and the was handed off to the waiting provider. The placenta was removed with gentle uterine massage and cord traction. The uterus was cleared of all clots and debris with moist laparotomy sponges. The uterine incision was repaired with 0 Vicryl in a running fashion. The fallopian tubes were transected using the ligasure device. On the right side, metzenbaum scissors were used to free the tube from the left ovary and oozing from the edge of the ovary was cauterized with the ligasure. On the left side, the fimbriae were adherent to the ovary and small remnants were left on the surface of the ovary. These remnants were cauterized with the ligasure. Hemostasis noted. The hysterotomy was re-inspected. Bleeding noted at the right angle of the hysterotomy, requiring multiple additional figure of eight stitches of monocryl and cautery with the bovie. We did remove the reynaldo and exteriorize the uterus for better visualization of the right angle. After hemostasis was achieved, the uterus was replaced. The omentum was inspected and several oozing areas cauterized with the bovie. Surgicel powder was placed over the hysterotomy and omentum. The rectus muscles were carefully examined. Oozing area on the posterior side of the fascia was cauterized with the bovie. The fascia was reapproximated with 1-PDS in a running fashion. The subcutaneous tissues was irrigated. The subcutaneous tissue was reapproximated with 2-0 Vicryl in two layers, and the skin was closed with 4-0 monocryl. Steristrips followed by a sterile dressing were placed. The patient tolerated the procedure well. Sponge, lap, needle, and instrument counts were correct at the end of the procedure. The patient was taken to the recovery room in stable condition. Dr. Huerta was necessary as an production assistant for the entire procedure for adequate retraction and visualization, to shorten operative time, to assist with delivery of the , and to lower the risk of surgical injury. Andrew Castano MD
[2025-10-06] MEDS ORDERED: ATROPINE ABBOJECT 1 MG/10 ML SYRINGE IVP PRN (10:39)
[2025-10-06] MEDS ORDERED: METOCLOPRAMIDE 10 MG/2 ML VIAL IVP PRN (10:39)
[2025-10-06] MEDS ORDERED: fentaNYL 100 MCG/2 ML VIAL IVP PRN (10:39)
[2025-10-06] MEDS ORDERED: HYDROmorphone 0.5 MG/0.5 ML SYRINGE IVP PRN (10:39)
[2025-10-06] MEDS ORDERED: MORPHINE 2 MG/ML CARPUJECT IVP PRN (10:39)
[2025-10-06] MEDS ORDERED: ePHEDrine 50 MG/ML VIAL IVP PRN (10:39)
[2025-10-06] MEDS: ceFAZolin (2G) 2 GM in SODIUM CHLORIDE 0.9% MINIBAG 100 ML IV ONE (10:51)
[2025-10-06] MEDS ORDERED: ACETAMINOPHEN 500 MG TABLET PO SCH (11:00)
[2025-10-06] MEDS ORDERED: KETOROLAC 30 MG/ML VIAL IVP SCH (12:00)
--- NOTE | 2025-10-06 13:19 | PHARMACY PROGRESS NOTE ---
Best Possible Medication History Admit Date and Time: 10/06/25 [id number] Home Medications Medication Instructions Recorded Confirmed Type ferrous sulfate 325 mg (65 mg 325 mg PO Q OTHER DAY #9 0 tabs 04/20/25 10/06/25 Rx iron) tablet (FeroSul) [id number] 400 mcg-om3 35 mg-dha 25 1 tab PO DAILY 05/2110/06/25 History mg-epa 5 mg-fish oil chewable tablet blood sugar diagnostic (Blood #50 ea 09/18/25 10/06/25 Rx Glucose Test strips) Held on 10/06/25. Instructions: Per Provider blood-glucose meter (Blood Glucose #1 ea 09/18/2509/09 Rx Monitoring kit) Held on 10/06/25. Instructions: Per Provider lancets (Lancets,Ultra Thin) #100 ea 09/18/25 10/06/25 Rx Held on 10/06/25. Instructions: Per Provider cholecalciferol (vitamin D3) 125 125 mcg PO DAILY 09/0910/06/25 History mcg (5,000 unit) capsule cyanocobalamin (vitamin B-12) 1,000 mcg PO DAILY 10/0610/06/25 History 1,000 mcg tablet levothyroxine 175 mcg tablet 175 mcg PO DAILY 10/06/25 10/06/25 History (Synthroid) Processed by: Pharmacy Medications reviewed in ED?: No Medication History completed: Yes Patient Interview: Completed [facility] Statement: As the person ultimately responsible for medication therapy, providers are able to order a medication from an existing home medication list in [facility] via the "Reconcile Routine" prior to Confirmation of that medication by support services specialist. Such practice is discouraged except when the physician, in their clinical judgment, deems that a medical need exists for a medication without regard to previous use.
--- NOTE | 2025-10-06 13:54 | ANESTHESIA POST OP EVALUATION ---
Anesthesia Post Eval Post Anesthesia Eval Vitals: Last Vital Signs Temp 36.5 C 10/06/25 11:50 Pulse 95 10/06/25 12:30 Resp 16 10/06/25 12:30 BP 124/95 H 10/06/25 12:30 Pulse Ox 98 10/06/25 12:30 CV Function Including HR & BP: Stable Pain Control: Satisfactory Nausea & Vomiting: Negative Mental Status: Baseline Respiratory Status: Airway Patent Hydration Status: Satisfactory Anesthesia Complications: None
[2025-10-06] MEDS: oxyCODONE 5 MG TABLET PO PRN (14:00)
[2025-10-06] MEDS: SIMETHICONE CHEW 80 MG TABLET PO PRN (14:01)
[2025-10-06] MEDS: KETOROLAC 30 MG/ML VIAL IVP SCH (15:28)
[2025-10-06] MEDS: ACETAMINOPHEN 500 MG TABLET PO SCH (17:31)
[2025-10-06] MEDS: DOCUSATE SODIUM 100 MG CAPSULE PO SCH (21:37)
[2025-10-07] MEDS ORDERED: LEVOTHYROXINE 75 MCG TABLET PO SCH (07:00)
[2025-10-07] MEDS: LEVOTHYROXINE 75 MCG TABLET PO SCH (08:02)
[2025-10-07] MEDS: LEVOTHYROXINE 100 MCG TABLET PO SCH (08:02)
[2025-10-07 09:28] LABS: HCT - HEMATOCRIT 31.1 % (37.0-47.0); HGB - HEMOGLOBIN 10.2 g/dL (12.0-16.0); MEAN PLATELET VOLUME 9.7 fL (7.9-10.8); PLT - PLATELET COUNT 247.0 10^3/uL (130-450); RED CELL DISTRIBUTION WIDTH 18.7 % (12.0-15.0)
[2025-10-07] MEDS: IBUPROFEN 600 MG TABLET PO SCH (09:32)
[2025-10-07] MEDS ORDERED: LEVOTHYROXINE 125 MCG TABLET PO SCH (10:39)
--- NOTE | 2025-10-07 11:29 | Discharge Summary ---
Discharge Summary Admit Date: 10/06/25 Discharge Date: 10/07/25 Discharging Provider: Andrew Castano MD HOSPITAL COURSE Hospital Course: Admission Diagnosis: - SIUP at 39w4d - Prior delivery x 3 - Desires permanent sterilization - Hypothyroidism - Obesity in - Anemia in - pyelectasis Discharge Diagnosis: - Same, delivered Procedures: Repeat low transverse delivery with bilateral salpingectomy Hospital Course: Stacie is a 35 yo GGP4 who presented at 39w4d who presented for scheduled repeat delivery. Surgery notable for adhesive disease, but was otherwise uncomplicated with an EBL of 760cc. course uncomplicated. Satcie requesting discharge home POD#1 meeting postoperative milestones. Condition on Discharge: SUBJECTIVE: She feels well no concerns. Had a hard time sleeping last night with uncomfortable hospital bed and spouse snoring. Would like to go home today so she can get more rest tonight - sleeps well in a recliner at home. Pain is well controlled with current medications. The baby is doing well. Baby is feeding via . She is ambulating well, tolerating normal diet, urinating without difficulty. Flatus has been passed. Lochia is reported as normal. OBJECTIVE: Vital signs reviewed GENERAL: NAD able to ambulate around room and get up from recliner and bed without difficulty CHEST: non labored respirations ABD: soft, appropriately TTP, fundus firm INCISION: Dressing removed, incision is clean and dry with steristrips in place. EXT: minimal lower extremity edema; No evidence of DVT LAB & IMAGING STUDIES: See below PLAN: Plan for discharge home with follow up in clinic in 1 week. Reviewed home care instructions and medications. Patient counseled regarding signs and symptoms of infection, excessive bleeding, vaginal rest and activity restrictions. preeclampsia precautions reviewed. ALLERGIES Allergies Allergy/AdvReac Type Severity Reaction Status Date / Time No Known Drug Allergies Allergy Verified 09/30/25 08:36 MEDICATIONS Ambulatory Orders Medication Instructions Recorded Confirmed ferrous sulfate 325 mg (65 mg 325 mg PO Q OTHER DAY #9 0 tabs 04/20/25 10/06/25 iron) tablet (FeroSul) [id number] 400 mcg-om3 35 mg-dha 25 1 tab PO DAILY 05/2110/06/25 mg-epa 5 mg-fish oil chewable tablet cholecalciferol (vitamin D3) 125 125 mcg PO DAILY 09/0910/06/25 mcg (5,000 unit) capsule cyanocobalamin (vitamin B-12) 1,000 mcg PO DAILY 10/0610/06/25 1,000 mcg tablet levothyroxine 175 mcg tablet 175 mcg PO DAILY 10/06/25 10/06/25 (Synthroid) acetaminophen 325 mg capsule 650 mg (2 x 325 mg) PO Q4 H 10/07/25 postoperative pain #90 caps ibuprofen 600 mg tablet 600 mg PO Q6H PRN postop cornel n #90 10/07/25 tabs oxycodone 5 mg tablet 5 mg PO Q6H PRN pain #20 tab s 10/07/25 sennosides 8.6 mg capsule (senna) 8.6 mg PO DAILY PRN constipation 10/07/25 #30 caps PHYSICAL EXAM AT DISCHARGE Vital Signs: Vital Signs x48h Temp Pulse Resp BP Pulse Ox 10/07/25 08:49 98.6 F 82 18 111/62 98 LABS 10/07/25 09:15 Discharge Plan Discharge Patient Disposition: 01 Home, Self Care Prescriptions: New acetaminophen 325 mg capsule 650 mg PO Q4H Qty: 90 0RF ibuprofen 600 mg tablet 600 mg PO Q6H PRN (Reason: postop pain) Qty: 90 0RF senna 8.6 mg capsule 8.6 mg PO DAILY PRN (Reason: constipation) Qty: 30 0RF oxycodone 5 mg tablet 5 mg PO Q6H PRN (Reason: pain) Qty: 20 0RF Continued cyanocobalamin (vitamin B-12) 1,000 mcg tablet 1,000 mcg PO DAILY levothyroxine [Synthroid] 175 mcg tablet 175 mcg PO DAILY cholecalciferol (vitamin D3) 125 mcg (5,000 unit) capsule 125 mcg PO DAILY ferrous sulfate [FeroSul] 325 mg (65 mg iron) tablet 325 mg PO Q OTHER DAY Qty: 90 4RF Rx Instructions: best if taken in the morning. [id number] oil 400 mcg-35 mg -25 mg-5 mg tablet,chewable 1 tab PO DAILY Discontinued (DME) Blood Glucose Test Strip See Rx Instructions .ROUTE .MEDSUPPLY Qty: 50 0RF Rx Instructions: Check blood sugar fasting in the morning and then 2 hours after breakfast, lunch, and dinner. Keep log of values. (DME) blood-glucose meter [Blood Glucose Monitoring] Kit See Rx Instructions .ROUTE .MEDSUPPLY Qty: 1 0RF Rx Instructions: Check blood sugar fasting in the morning and then 2 hours after breakfast, lunch, and dinner. Keep log of values. (DME) lancets [Lancets,Ultra Thin] Misc See Rx Instructions .Route Qty: 100 0RF Rx Instructions: Check blood sugar fasting in the morning and then 2 hours after breakfast, lunch, and dinner Print Language: Faroese Patient Instructions: Surg Dc, Breast Care After , After a Follow-up Care: Andrew Castano MD [Provider Admit Priv/Credential, Obstetrics/Gynecology]
[2025-10-07 17:12] VITALS: BP 139/76; TEMP 98.8; O2SAT 99
== END 2025-10-07 17:30 | disposition home or self-care (01) | DRG 785 ==
LOC: FBP 05:23
PROVIDERS: ADMIT Obstetrics & Gynecology; ATTEND Obstetrics & Gynecology